=== PATIENT | female | born 1970 | race Caucasian/White ===

== ENCOUNTER 2023-09-02 10:36 | Inpatient (IN) | payer OTHER ==
[2023-09-02] VITALS (9 sets, daily range): BP systolic 140–212; BP diastolic 67–97
[~2023-09-02] VITALS: Ht 162.5 cm; Wt 108.1 kg
[2023-09-02 11:22] LABS: BASO # 0.1 10*3/uL (0.0-0.1); BASO % 0.6 % (0.0-1.0); EOS # 0.4 10*3/uL (0.0-0.4); EOS % 4.4 % (1.0-4.0); HEMATOCRIT 48.2 % (37.0-47.0); LYMPH # 2.7 10*3/uL (1.3-4.4); LYMPH % 27.2 % (27.0-41.0); MEAN CELL VOLUME 92.7 fl (81.0-99.0); MEAN CORPUSCULAR HGB 30.2 pg (27.0-31.0); MEAN CORPUSCULAR HGB CONC 32.6 g/dl (33.0-37.0); MONO # 0.7 10*3/uL (0.1-1.0); MONO % 7.3 % (3.0-9.0); NEUT # 5.9 10*3/uL (2.3-7.9); NEUT % 60.2 % (47.0-73.0); PLATELET COUNT AUTOMATED 313 10*3/uL (130-400); RED CELL DISTRI WIDTH 13.8 % (0-14.5); WHITE BLOOD COUNT 9.8 10*3/uL (4.8-10.8)
[2023-09-02 11:33] LABS: ACT PARTIAL THROMBO TIME 30.2 SECONDS (20.0-32.1)
[2023-09-02 11:40] LABS: ALKALINE PHOSPHATASE 98 U/L (46-116); BUN 6 mg/dl (9-23); CHLORIDE 105 mmol/L (98-107); LIPASE 34 U/L (12-53); POTASSIUM 3.4 mmol/L (3.4-5.1); SGPT/ALT 27 U/L (5-49); TOTAL PROTEIN 7.4 gm/dL (6.0-8.0)
[2023-09-02 11:43] LABS: ETHYL ALCOHOL < 3.0 mg/dl (<3)
[2023-09-02] MEDS ORDERED: ASPIRIN 325 MG ENTERIC COATED PO ONE (11:45)
[2023-09-02] MEDS ORDERED: ATORVASTATIN CALCIUM 80 MG TAB PO SCH (12:00)
[2023-09-02] MEDS ORDERED: LISINOPRIL 5 MG TAB PO SCH (12:00)
[2023-09-02] MEDS ORDERED: Metoprolol Tartrate 25 MG TAB PO SCH ×2 (12:00→22:00)
[2023-09-02 12:02] LABS: URINE AMPHETAMINES Negative (1000ng/ml); URINE BARBITURATES Negative (200ng/ml); URINE BENZODIAZEPINES Positive (200ng/ml); URINE CANNABINOIDS (THC) Positive (50ng/ml); URINE COCAINE Negative (300ng/ml); URINE METHADONE Negative (300ng/ml); URINE OPIATES Negative (300ng/ml); URINE PHENCYCLIDINE Negative (25ng/ml)
[2023-09-02 12:16] LABS: BILIRUBIN Negative (Negative); BLOOD Negative (Negative); CLARITY Clear (Clear); COLOR Yellow (Yellow); GLUCOSE Negative (Negative); KETONE Negative (Negative); LEUKO ESTERASE Negative (Negative); NITRITE Negative (Negative); UROBILINOGEN 0.2 E.U./dl (0.0-1.0)
[2023-09-02 12:45] LABS: BACTERIA TRACE; WBC 0-2 wbc/hpf (0-5)
[2023-09-02] MEDS ORDERED: HEPARIN SODIUM 250 ML IV SCH (13:50)
[2023-09-02] MEDS ORDERED: ACETAMINOPHEN 325 MG TAB PO PRN (15:00)
[2023-09-02] MEDS ORDERED: Ondansetron Hydrochloride 4 MG/2 ML VIAL IV PRN (15:00)
[2023-09-02] MEDS ORDERED: BISACODYL 5 MG TAB PO PRN (15:00)
[2023-09-02] MEDS ORDERED: ACETAMINOPHEN 650 MG SUPP R PRN (15:00)
[2023-09-02] MEDS ORDERED: MORPHINE Sulfate 2 MG/ML SYR IV PRN (15:00)
[2023-09-02] MEDS ORDERED: BISACODYL 10 MG SUPP R PRN (15:00)
[2023-09-02] MEDS ORDERED: TEMAZEPAM 15 MG CAP PO PRN (15:00)
[2023-09-02] MEDS ORDERED: Magnesium Hydroxide 30 ML UDC PO PRN (15:00)
[2023-09-02] MEDS ORDERED: Dextrose/Nitroglycerin 250 ML IV SCH (16:00)
[2023-09-02] MEDS ORDERED: AMOXICILLIN500 M3 PO (19:56)
[2023-09-02] MEDS ORDERED: Motrin,Rufen800 MG PO (19:57)
[2023-09-03] VITALS: BP 143/76
[2023-09-03 02:00] VITALS: BP 126/53
[2023-09-03 04:00] VITALS: BP 148/73
[2023-09-03 04:29] LABS: BASO # 0.1 10*3/uL (0.0-0.1); BASO % 0.5 % (0.0-1.0); EOS # 0.5 10*3/uL (0.0-0.4); HEMATOCRIT 44.4 % (37.0-47.0); LYMPH % 30.1 % (27.0-41.0); MEAN CELL VOLUME 93.9 fl (81.0-99.0); MEAN CORPUSCULAR HGB 30.4 pg (27.0-31.0); MEAN CORPUSCULAR HGB CONC 32.4 g/dl (33.0-37.0); MEAN PLATELET VOLUME 11.1 fl (9.6-12.3); MONO # 0.8 10*3/uL (0.1-1.0); MONO % 6.3 % (3.0-9.0); NEUT # 7.8 10*3/uL (2.3-7.9); NEUT % 58.9 % (47.0-73.0); PLATELET COUNT AUTOMATED 277 10*3/uL (130-400); RED BLOOD COUNT 4.73 10*6/uL (4.10-5.10); WHITE BLOOD COUNT 13.3 10*3/uL (4.8-10.8)
[2023-09-03 06:00] VITALS: BP 104/61
[2023-09-03] MEDS ORDERED: Pantoprazole Sodium 40 MG VIAL IV SCH (06:00)
[2023-09-03 06:31] LABS: ALKALINE PHOSPHATASE 86 U/L (46-116); BUN 10 mg/dl (9-23); CHLORIDE 106 mmol/L (98-107); CHOLESTEROL 232 mg/dL (<200); FREE T4 1.31 ng/dl (0.89-1.76); LDL CHOLESTEROL 168 mg/dL (9-159); SGPT/ALT 24 U/L (5-49); TOTAL PROTEIN 6.6 gm/dL (6.0-8.0); TRIGLYCERIDES 136 mg/dl (<150)
[2023-09-03] MEDS ORDERED: ATORVASTATIN CALCIUM 80 MG TAB PO SCH (10:00)
[2023-09-03] MEDS ORDERED: LISINOPRIL 10 MG TAB PO SCH (10:00)
[2023-09-03] MEDS ORDERED: ASPIRIN ENTERIC COATED 81 MG TAB PO SCH (10:00)
[2023-09-03 11:38] LABS: VITAMIN D, 25-HYDROXY 9.2 ng/mL (30-100)
== END 2023-09-03 07:45 | disposition short-term general hospital (02) | DRG 281 ==
LOC: ED 10:36 → ICCU 14:03 → EDHOLD 14:03 → ICCU 16:55
PROVIDERS: Internal Medicine; Student in an Organized Health Care Education/Training Program; ADMIT Internal Medicine; ATTEND Internal Medicine
DX: I21.4 Non-ST elevation (NSTEMI) myocardial infarction (principal); I16.1 Hypertensive emergency; Z68.41 Body mass index [BMI] 40.0-44.9, adult; E66.9 Obesity, unspecified; F17.210 Nicotine dependence, cigarettes, uncomplicated; R73.9 Hyperglycemia, unspecified; E78.5 Hyperlipidemia, unspecified; I10 Essential (primary) hypertension; F19.10 Other psychoactive substance abuse, uncomplicated; Z90.710 Acquired absence of both cervix and uterus; Z90.49 Acquired absence of other specified parts of digestive tract; Z79.899 Other long term (current) drug therapy; Z88.8 Allergy status to other drugs, medicaments and biological substances; Z71.6 Tobacco abuse counseling